=== PATIENT | male | born 1960 | race Caucasian/White ===

== ENCOUNTER 2020-10-01 06:36 | Inpatient (IN) | payer BC, SELFPAY ==
[~2020-10-01] VITALS: Ht 175.3 cm; Wt 83.6 kg
[2020-10-01 06:40] VITALS: Ht 175.3 cm; Wt 83.6 kg
[2020-10-01 08:00] LABS: BASOPHIL % 0.1 % (0-2); PLATELET COUNT 141 x10^3mcL (130-400); RED CELL DISTRIBUTION WIDTH 13.4 % (11.5-14.5)
[2020-10-01 08:07] LABS: CARBON DIOXIDE 25.8 mmol/L (21-32); CHLORIDE SERUM 101 mmol/L (98-107); CREATININE SERUM 0.9 mg/dL (0.7-1.3); GFR1 > 60 mL/min; GLUCOSE SERUM 202 mg/dL (74-106); POTASSIUM SERUM 3.4 mmol/L (3.5-5.1); SODIUM SERUM 136 mmol/L (136-145)
[2020-10-01 08:12] LABS: ALKALINE PHOSPHATASE 97 U/L (46-116); ALT/SGPT 32 U/L (16-63); AST/SGOT 30 U/L (15-37); BILIRUBIN TOTAL 0.4 mg/dL (0.20-1.00); C REACTIVE PROTEIN 7.8 mg/dL (<=0.9); LACTIC DEHYDROGENASE (LDH) 194 U/L (100-190); TOTAL PROTEIN, SERUM 7.1 g/dL (6.4-8.2)
[2020-10-01 08:18] LABS: ALBUMIN 3.2 g/dL (3.4-5.0)
[2020-10-01] MEDS ORDERED: NASAL MIST126 ML (08:58)
[2020-10-01] MEDS ORDERED: AZOR 5-40 MG T1 EACH PO (08:58)
[2020-10-01] MEDS ORDERED: TOPROL XL50 MG PO (08:58)
[2020-10-01 09:32] LABS: microscopic required? YES; urine erythrocyte NEGATIVE (NEGATIVE)
[2020-10-01 11:59] VITALS: BP 119/78
[2020-10-01 20:29] VITALS: BP 142/87
[2020-10-02 02:00] VITALS: BP 130/79
[2020-10-02 06:10] VITALS: BP 130/79
[2020-10-02 06:41] LABS: BASOPHIL % 0.3 % (0-2); PLATELET COUNT 161 x10^3mcL (130-400); RED CELL DISTRIBUTION WIDTH 13.1 % (11.5-14.5)
[2020-10-02 07:18] LABS: CALCIUM 8.7 mg/dL (8.5-10.1); CHLORIDE SERUM 105 mmol/L (98-107); CREATININE SERUM 0.7 mg/dL (0.7-1.3); GFR1 > 60 mL/min; GLUCOSE SERUM 142 mg/dL (74-106); POTASSIUM SERUM 3.7 mmol/L (3.5-5.1); SODIUM SERUM 140 mmol/L (136-145)
[2020-10-02 08:42] VITALS: BP 132/88
[2020-10-02 12:06] VITALS: BP 130/88
[2020-10-02 12:16] LABS: BILIRUBIN DIRECT 0.13 mg/dL (0.0-0.2); BILIRUBIN TOTAL 0.42 mg/dL (0.20-1.00); TOTAL PROTEIN, SERUM 7.4 g/dL (6.4-8.2)
[2020-10-02 12:29] LABS: ALBUMIN 3.1 g/dL (3.4-5.0)
[2020-10-02 16:26] VITALS: BP 126/80
[2020-10-02 21:41] VITALS: BP 125/78
[2020-10-03 06:13] VITALS: BP 136/81
[2020-10-03 07:27] LABS: CALCIUM 9.2 mg/dL (8.5-10.1); CARBON DIOXIDE 28.3 mmol/L (21-32); CHLORIDE SERUM 104 mmol/L (98-107); CREATININE SERUM 0.8 mg/dL (0.7-1.3); GFR1 > 60 mL/min; GLUCOSE SERUM 132 mg/dL (74-106); SODIUM SERUM 141 mmol/L (136-145)
[2020-10-03 07:29] LABS: ALBUMIN 3.3 g/dL (3.4-5.0); BILIRUBIN DIRECT 0.22 mg/dL (0.0-0.2); BILIRUBIN TOTAL 0.63 mg/dL (0.20-1.00); TOTAL PROTEIN, SERUM 7.8 g/dL (6.4-8.2)
[2020-10-03 07:52] LABS: BASOPHIL % 0.2 % (0-2); PLATELET COUNT 192 x10^3mcL (130-400); RED CELL DISTRIBUTION WIDTH 13.2 % (11.5-14.5)
[2020-10-03 08:47] VITALS: BP 147/88
[2020-10-03] MEDS ORDERED: NOR5 PO (10:19)
[2020-10-03 12:11] VITALS: BP 134/88
[2020-10-03 17:23] VITALS: BP 138/89
[2020-10-03 21:25] VITALS: BP 109/77
[2020-10-04 05:28] VITALS: BP 119/84
[2020-10-04 07:41] LABS: BILIRUBIN DIRECT 0.26 mg/dL (0.0-0.2); BILIRUBIN TOTAL 0.76 mg/dL (0.20-1.00); TOTAL PROTEIN, SERUM 7.7 g/dL (6.4-8.2)
[2020-10-04 07:42] LABS: ALBUMIN 3.3 g/dL (3.4-5.0)
[2020-10-04 08:28] VITALS: BP 143/89
[2020-10-04 12:13] VITALS: BP 139/92
[2020-10-04 16:46] VITALS: BP 119/80
[2020-10-04 21:01] VITALS: BP 180/83
[2020-10-04 23:44] VITALS: BP 128/84
[2020-10-05 04:37] VITALS: BP 132/78
[2020-10-05 07:21] LABS: ALBUMIN 3.4 g/dL (3.4-5.0); BILIRUBIN DIRECT 0.29 mg/dL (0.0-0.2); BILIRUBIN TOTAL 0.87 mg/dL (0.20-1.00); TOTAL PROTEIN, SERUM 7.3 g/dL (6.4-8.2)
[2020-10-05 08:07] VITALS: BP 111/83
[2020-10-05 12:20] VITALS: BP 131/84
[2020-10-05 15:52] VITALS: BP 120/81
[2020-10-05 21:19] VITALS: BP 130/87
[2020-10-06 05:48] VITALS: BP 125/80
[2020-10-06 07:00] LABS: BASOPHIL % 0.2 % (0-2); PLATELET COUNT 279 x10^3mcL (130-400)
[2020-10-06 07:43] LABS: ALKALINE PHOSPHATASE 96 U/L (46-116); ALT/SGPT 63 U/L (16-63); AST/SGOT 45 U/L (15-37); BILIRUBIN DIRECT 0.31 mg/dL (0.0-0.2); BILIRUBIN TOTAL 0.9 mg/dL (0.20-1.00); CALCIUM 9.1 mg/dL (8.5-10.1); CARBON DIOXIDE 28.7 mmol/L (21-32); CHLORIDE SERUM 106 mmol/L (98-107); CREATININE SERUM 0.9 mg/dL (0.7-1.3); GFR1 > 60 mL/min; GLUCOSE SERUM 131 mg/dL (74-106); POTASSIUM SERUM 3.9 mmol/L (3.5-5.1); SODIUM SERUM 145 mmol/L (136-145); TOTAL PROTEIN, SERUM 7.5 g/dL (6.4-8.2)
[2020-10-06 07:45] LABS: ALBUMIN 3.3 g/dL (3.4-5.0)
[2020-10-06 07:47] VITALS: BP 130/76
[2020-10-06 11:57] VITALS: BP 125/79
[2020-10-06 16:13] VITALS: BP 126/85
[2020-10-06 21:30] VITALS: BP 140/74
[2020-10-07 05:56] VITALS: BP 134/90
[2020-10-07 07:31] LABS: CARBON DIOXIDE 27.4 mmol/L (21-32); CHLORIDE SERUM 107 mmol/L (98-107); GFR1 > 60 mL/min; GLUCOSE SERUM 141 mg/dL (74-106); POTASSIUM SERUM 3.8 mmol/L (3.5-5.1); SODIUM SERUM 143 mmol/L (136-145)
[2020-10-07 07:40] VITALS: BP 118/81
[2020-10-07 12:11] VITALS: BP 99/63
[2020-10-07 13:29] LABS: PLATELET COUNT 289 x10^3mcL (130-400); RED CELL DISTRIBUTION WIDTH 13.4 % (11.5-14.5)
[2020-10-07 14:18] LABS: MONOCYTE 4 % (0-7); SEGMENTED NEUTROPHILS 80 % (37-75)
[2020-10-07 14:19] LABS: rbc morphology (normal/abnorm) NORMAL (NORMAL)
[2020-10-07 16:24] VITALS: BP 121/82
[2020-10-07 22:00] VITALS: BP 120/78
[2020-10-08 05:55] VITALS: BP 106/65
[2020-10-08 08:35] VITALS: BP 101/70
[2020-10-08 12:02] VITALS: BP 95/62
[2020-10-08 12:27] VITALS: BP 109/64
[2020-10-08 21:20] VITALS: BP 112/76
[2020-10-09 05:10] VITALS: BP 97/66
[2020-10-09 08:16] VITALS: BP 94/72
[2020-10-09 09:30] VITALS: BP 104/64
[2020-10-09 13:14] VITALS: BP 115/79
[2020-10-09 16:05] VITALS: BP 107/72
[2020-10-09 22:26] VITALS: BP 110/70
[2020-10-10 05:51] VITALS: BP 125/80
[2020-10-10 08:31] VITALS: BP 97/67
[2020-10-10 12:27] VITALS: BP 111/80
[2020-10-10 16:17] VITALS: BP 99/65
[2020-10-11 06:09] VITALS: BP 112/69
[2020-10-11 09:05] VITALS: BP 99/69
[2020-10-11 11:57] VITALS: BP 103/71
[2020-10-11 15:43] VITALS: BP 102/64
[2020-10-11 20:19] VITALS: BP 99/51
[2020-10-12 04:35] VITALS: BP 108/61
[2020-10-12 07:38] LABS: BASOPHIL % 0.2 % (0-2); PLATELET COUNT 310 x10^3mcL (130-400); RED CELL DISTRIBUTION WIDTH 12.6 % (11.5-14.5)
[2020-10-12 07:50] LABS: CALCIUM 9.4 mg/dL (8.5-10.1); CARBON DIOXIDE 34.2 mmol/L (21-32); CHLORIDE SERUM 100 mmol/L (98-107); CREATININE SERUM 1.1 mg/dL (0.7-1.3); GFR1 > 60 mL/min; GLUCOSE SERUM 161 mg/dL (74-106); POTASSIUM SERUM 4.4 mmol/L (3.5-5.1); SODIUM SERUM 138 mmol/L (136-145)
[2020-10-12 08:20] VITALS: BP 99/64
[2020-10-12 11:31] VITALS: BP 94/57
[2020-10-12 15:49] VITALS: BP 120/75
[2020-10-12] MEDS ORDERED: VENTOLIN H0.09 MG/A1 INH (16:06)
[2020-10-12] MEDS ORDERED: DEC10I IV (16:06)
[2020-10-12] MEDS ORDERED: ZINC SULFATE220 MG PO (16:06)
[2020-10-12] MEDS ORDERED: VITC PO (16:07)
[2020-10-12 18:21] VITALS: BP 120/75
== END 2020-10-12 19:45 | disposition short-term general hospital (02) | DRG 871 ==
LOC: ED 06:36 → DU 09:01
PROVIDERS: Emergency Medicine; Internal Medicine; Internal Medicine Infectious Disease; ADMIT Family Medicine; ATTEND Family Medicine
PROC: XW13325 Transfusion of Convalescent Plasma (Nonautologous) into Peripheral Vein, Percutaneous Approach, New Technology Group 5 (ICD-10-PCS; principal; 2020-10-02)
PROC: XW033E5 Introduction of Remdesivir Anti-infective into Peripheral Vein, Percutaneous Approach, New Technology Group 5 (ICD-10-PCS; 2020-10-02)
DX: A41.9 Sepsis, unspecified organism (principal); U07.1 COVID-19; J12.89 Other viral pneumonia; J96.01 Acute respiratory failure with hypoxia; E87.2 Acidosis; I10 Essential (primary) hypertension; Z79.899 Other long term (current) drug therapy
CPT/HCPCS: 36600; 83880; 85378; 87804; G0378; J0456; J0696; J1100; J1650; J1940; J3535; J7050; J7060; U0003